=== PATIENT | male | born 1955 | race Caucasian/White ===

== ENCOUNTER 2023-09-15 10:38 | Emergency (ER) | payer OTHER, SELFPAY ==
[2023-09-15] VITALS (29 sets, daily range): BP systolic 90–188; BP diastolic 67–94; PULSE 68–96; RESP 13–25; TEMP 36.2; O2SAT 92–98
--- NOTE | 2023-09-15 10:50 | W.ED.GENAD ---
Discharge Plan Disposition Patient Disposition: Home Condition: Stable Discharge Details Clinical Impression: Alcohol abuse, Alcohol withdrawal Primary Care Provider: Veronica,Local ED Provider: Lorena Julian Home Meds and New Rx's Prescriptions: No Action Unable to Obtain Discharge Instructions Instructions: Alcohol withdrawal Additional Instructions: PLEASE FOLLOW UP WITH [facility] FOR SOBRIETY YOU SHOULD ALSO FOLLOW UP WITH A PCP FOR ELEVATED BLOOD PRESSURE HPI General Date/Time Provider Initiated Documentation: 09/15/23 10:43. Limitations to Documentation: no limitations. Information obtained by: patient and EMS. HPI Narrative: 67-year-old gentleman with past medical history of alcohol abuse presents via EMS from residential. Patient is not in police custody, but was being observed in the residential overnight. Apparently he was picked up from [facility]. He does not really recall the circumstances of last night. Per EMS report, the patient had an alcohol level of over 200 last night and this morning had an alcohol level of 50. He is complaining of some tremor and nausea. He states that he has not had anything to eat today. He does report binge drinking high doses of alcohol for the last 2 weeks. He states that he has significant issue in the past with alcohol withdrawal. He states that he is interested in sobriety at this time. Related Data Home Medications ?Medication ?Instructions ?Recorded ?Confirmed Unknown [Unable to Obtain] 09/15/23 09/15/23 Allergies Allergy/AdvReac Type Severity Reaction Status Date / Time aspirin Allergy Mild GI Bleeding Verified 09/15/23 10:45 General Stated Complaint: ETOHWithdr DICKSON: 4 Exam Narrative Exam Narrative: Review of Systems: All systems reviewed & are unremarkable except as noted in HPI and below Well-developed, no acute distress NCAT PERRL, normal conjunctiva RRR, mild hypertension, no tachycardia Unlabored respiratory effort, CTAB Nondistended abdomen , soft non tender Extremities w/o deformity, no cyanosis, no edema No rashes or lesions. no hallucinations or significant agitation. mild tremor noted CIWA 5 Appropriate mood and affect, so SI/HI Course Vital Signs Vital signs: Vital Signs Temperature 36.2 C L 09/15/23 10:37 Pulse 72 09/15/23 10:37 Respiratory Rate 16 09/15/23 10:37 Blood Pressure 188/94 H 09/15/23 10:37 Pulse Oximetry 95 09/15/23 10:37 Temperature 36.2 C L 09/15/23 10:37 Temperature Source Tympanic 09/15/23 10:37 Pulse 74 09/15/23 10:40 Pulse 79 09/15/23 10:41 Respiratory Rate 25 H 09/15/23 10:41 Blood Pressure 188/94 H 09/15/23 10:40 Blood Pressure Mean 125 09/15/23 10:40 Blood Pressure Position Sitting 09/15/23 10:37 Pulse Oximetry 96 09/15/23 10:41 Oxygen Delivery Method Room Air 09/15/23 10:37 Oxygen Flow Rate 0 09/15/23 10:37 Pain Level 6 09/15/23 10:37 Medical Decision Making Patient presents in alcohol withdrawal last drink was 1 day ago. Patient does not have tachycardia, tongue fasciculations, any tactile, insurance premium auditor or visual hallucinations. Patient is AAOx3. Patient does report history of alcohol withdrawal seizures. 1115 Currently drinking gingerale and would like food. Reported to nurse that he drove to [facility] last night, presumes car is still there. Apparently was placed in police protective custody and nearest residential would be in [facility] which is how he ended up here today. 1320 Patient treated with librium here and alcohol withdrawal resolved on time of discharge. Unfortunately men's basketball coach not available to speak to the patient in the emergency department. Care management evaluated the situation and unfortunately not able to pay for transportation. At this time the patient is stable for DC. Advised to monitor symptoms closely, follow up with PCP and return with any worsening symptoms of withdrawal. Quality:SDOH Health Related Social Needs: No Data to Display PFSH All Active Problems Alcohol withdrawal (Acute) Alcohol abuse (Chronic) Social History Smoking/Tobacco Use Status: Current every day Tobacco Type: cigarettes Smoking risk assessment performed?: Yes Alcohol Intake: current Alcohol Intake frequency: 3 or more drinks per day Alcohol type: hard liquor Drug use: Occasionally Substance use type: marijuana Housing: apartment
[2023-09-15] MEDS: chlordiazePOXIDE 25 MG CAP 50 MG PO (10:55)
--- NOTE | 2023-09-15 11:28 | NUR.NOTE ---
pt with no s/s of active W/D, no tremors, endorses nausea but then requested food, BG 70 but given full sugar drink with meds, see MAR for admin, pt with call mcguire inr each, made aware of Information Technology Consultant, [employer] paged and will come see pt, pt stated truck is at [facility] but unsure how arrived in police custody, no cell phone.
[2023-09-15] MEDS: Ondansetron O.D.T. 4 MG TABEF PO (11:57)
== END 2023-09-15 13:19 | disposition home or self-care (01) ==
PROVIDERS: Emergency Provider Emergency Medicine
DX: F10.130 Alcohol abuse with withdrawal, uncomplicated (principal); F17.210 Nicotine dependence, cigarettes, uncomplicated
CPT/HCPCS: 82962; 99283